=== PATIENT | male | born 1985 | race Caucasian/White ===

== ENCOUNTER 2018-12-09 00:59 | Emergency (ER) | payer MEDICAID ==
[~2018-12-09] VITALS: Ht 165.1 cm; Wt 85.0 kg
[~2018-12-09 00:59] MED LIST: AMOX500T2 PO
[2018-12-09] MEDS ORDERED: IBUPROFEN 600MG TABLET PO ONE (06:45)
[2018-12-09 07:10] VITALS: BP 106/55
[2018-12-09 07:37] LABS: CLARITY URINE CLEAR (CLEAR); COLOR URINE YELLOW (YELLOW); KETONES URINE TRACE (NEGATIVE); LEUKOCYTE ESTERASE URINE NEGATIVE (NEGATIVE); NITRITE URINE NEGATIVE (NEGATIVE); OCCULT BLOOD URINE NEGATIVE (NEGATIVE); PH URINE 5.5 (4.5-8.0); PROTEIN URINE NEGATIVE (NEGATIVE); SPECIFIC GRAVITY URINE 1.036 (1.005-1.030); UROBILINOGEN URINE 0.2 E.U./dL (0.2-1.0)
== END 2018-12-09 08:34 | disposition home or self-care (01) ==
LOC: ER 02:13
DX: M54.5 Low back pain (principal)
CPT/HCPCS: 99283

== ENCOUNTER 2023-10-20 21:59 | Emergency (ER) | payer MEDICAID ==
[~2023-10-20] VITALS: Ht 165.1 cm; Wt 87.0 kg
[2023-10-20 22:20] VITALS: BP 141/89; PULSE 113; RESP 17; TEMP 98.2; O2SAT 98
[2023-10-20] MEDS ORDERED: KETOROLAC 15MG/ML VIAL IM ONE (23:30)
[2023-10-21] MEDS ORDERED: T3 PO (00:59)
[2023-10-21] MEDS ORDERED: BENZ100C86 MT (02:45)
== END 2023-10-21 03:42 | disposition home or self-care (01) ==
LOC: ER 21:59
DX: S96.911A Strain of unspecified muscle and tendon at ankle and foot level, right foot, initial encounter (principal); X58.XXXA Exposure to other specified factors, initial encounter; Y93.89 Activity, other specified; Y92.89 Other specified places as the place of occurrence of the external cause; Y99.8 Other external cause status
CPT/HCPCS: 99283; 73630; 96372; J1885

== ENCOUNTER 2024-12-31 18:16 | Emergency (ER) | payer MEDICAID ==
[~2024-12-31] VITALS: Ht 172.7 cm; Wt 93.0 kg
[~2024-12-31 18:16] MED LIST changes: +BENZ100C86 MT; +T3 PO
[2024-12-31 18:27] VITALS: TEMP 36.8; O2SAT 95
[2024-12-31 18:52] LABS: CLARITY URINE CLEAR (CLEAR); COLOR URINE YELLOW (YELLOW); GLUCOSE URINE NEGATIVE (NEGATIVE); KETONES URINE NEGATIVE (NEGATIVE); LEUKOCYTE ESTERASE URINE NEGATIVE (NEGATIVE); NITRITE URINE NEGATIVE (NEGATIVE); OCCULT BLOOD URINE NEGATIVE (NEGATIVE); PH URINE 7.5 (4.5-8.0); PROTEIN URINE NEGATIVE (NEGATIVE); UROBILINOGEN URINE 0.2 E.U./dL (0.2-1.0)
[2024-12-31 19:10] LABS: BASOPHILS % 0.9 % (0.0-2.0); EOSINOPHILS % 4.1 % (0.0-5.0); HEMATOCRIT. 49.5 % (42.0-52.0); HEMOGLOBIN. 15.8 g/dL (14.0-18.0); LYMPHOCYTES % 37.4 % (20.0-50.0); MEAN CORPUSCULAR HEMOGLOBIN 26.8 pg (28.0-32.0); MEAN CORPUSCULAR HGB CONC 31.9 g/dL (31.0-37.0); MEAN CORPUSCULAR VOLUME 83.9 fL (80.0-94.0); MEAN PLATELET VOLUME 8.6 fl (7.4-10.4); MONOCYTES % 8.2 % (2.0-8.0); NEUTROPHILS % 49.4 % (40.0-76.0); PLATELET 266 x1000/uL (130-400); RED CELL DISTRIBUTION WIDTH 14.3 % (11.6-14.6); WHITE BLOOD COUNT 8.6 x1000/uL (4.5-11.0)
[2024-12-31 19:20] LABS: CHLORIDE 106 mEq/L (98-107); POTASSIUM 4.2 mEq/L (3.5-5.1); SODIUM 141 mEq/L (136-145)
[2024-12-31 19:21] LABS: CARBON DIOXIDE 28 mEq/L (21-32)
[2024-12-31 19:26] LABS: CREATININE 0.9 mg/dL (0.6-1.3); GLUCOSE 105 mg/dL (70-105); UREA NITROGEN BLOOD 12 mg/dL (9-23)
[2024-12-31 19:27] LABS: ETHANOL BLOOD < 10 mg/dL (<10)
[2024-12-31 19:28] LABS: ALANINE AMINOTRANSFERASE 66 IU/L (10-49); ALBUMIN 4.3 g/dL (3.2-4.8); ASPARTATE AMINOTRANSFERASE 25 IU/L (<34); BILIRUBIN DIRECT < 0.1 mg/dL (<=3.0)
[2024-12-31 19:29] LABS: BILIRUBIN TOTAL 0.3 mg/dL (0.1-1.0); PROTEIN TOTAL 7.3 g/dL (6.0-8.3)
[2024-12-31] MEDS ORDERED: FAMO-135 MT (20:04)
[2024-12-31 20:45] VITALS: BP 128/74; PULSE 68; RESP 18; O2SAT 97
== END 2024-12-31 20:55 | disposition home or self-care (01) ==
LOC: ER 18:16
DX: K29.00 Acute gastritis without bleeding (principal)
CPT/HCPCS: 36415; 80048; 80076; 80320; 81003; 85025; 99283; G0480